=== PATIENT | female | born 1960 | race Caucasian/White ===

== ENCOUNTER 2021-05-31 08:46 | Day surgery (SDC) | payer BC ==
[2021-05-30 11:27] VITALS: BMI 34.7
[2021-05-31] MEDS ORDERED: AFRIN NASAL MIST 15 ML BOT ONE ×2 (09:22→09:30)
[2021-05-31] MEDS ORDERED: EPINEPHrine 1 MG/ML AMP ONE (09:30)
[2021-05-31] MEDS ORDERED: Lidocaine 1% w/Epinephrine 1:100K 20 ML VIAL ONE (09:30)
[2021-05-31] MEDS ORDERED: Midazolam HCl 2 mg/2 ml Vial ONE (09:38)
[2021-05-31] MEDS ORDERED: Fentanyl 100 MCG/2 ML VIAL ONE ×3 (09:38→11:24)
[2021-05-31] MEDS ORDERED: Lidocaine 1% PF 5 ML VIAL ONE (09:48)
[2021-05-31] MEDS ORDERED: Dexamethasone 20 MG/5 ML VIAL ONE (09:48)
[2021-05-31] MEDS ORDERED: PROPOFOL 200 MG/20 ML VIAL ONE (09:48)
[2021-05-31] MEDS ORDERED: Glycopyrrolate 0.2 MG/ML 5 ML SYRINGE ONE (09:48)
[2021-05-31] MEDS ORDERED: Rocuronium Bromide 10 MG/ML (10ML VIAL) ONE (09:48)
[2021-05-31] MEDS ORDERED: Ondansetron PF 4 MG/2 ML Vial ONE (09:48)
[2021-05-31] MEDS ORDERED: ePHEDrine 50 MG/ML VIAL ONE (09:48)
[2021-05-31] MEDS ORDERED: HYDROcodone/Acetaminophen 5/325 mg Tablet ONE (11:50)
[2021-05-31] MEDS ORDERED: hydrALAZINE 20 MG/ML VIAL ONE (13:00)
== END 2021-05-31 13:47 | disposition home or self-care (01) ==
LOC: SDC 08:46
PROVIDERS: ATTEND Specialist
PROC: 09BM4ZZ Excision of Nasal Septum, Percutaneous Endoscopic Approach (ICD-10-PCS; principal; 2021-05-31)
DX: J34.2 Deviated nasal septum (principal); J34.3 Hypertrophy of nasal turbinates; J34.89 Other specified disorders of nose and nasal sinuses; E78.5 Hyperlipidemia, unspecified; E66.9 Obesity, unspecified; Z68.34 Body mass index [BMI] 34.0-34.9, adult; Z79.890 Hormone replacement therapy; Z79.899 Other long term (current) drug therapy
CPT/HCPCS: 36415; 85014; J0171; J0360; J1100; J2250; J2405; J2704; J3010; J3490